=== PATIENT | male | born 1945 | race Caucasian/White ===

== ENCOUNTER 2019-02-19 16:52 | Emergency (ER) | payer MEDICARE ==
[~2019-02-19] VITALS: Ht 170.2 cm; Wt 59.0 kg
[2019-02-19] MEDS ORDERED: IPRATROPIUM BROMIDE (0.02%) 0.5MG/2.5ML NEB HHN STA (17:28)
[2019-02-19] MEDS ORDERED: ALBUTEROL (0.083%) 2.5MG/3ML NEB HHN STA (17:28)
[2019-02-19] MEDS ORDERED: METHYLPREDNISOLONE SOD SUCC 125 MG/2 ML VIAL IV STA (17:28)
[2019-02-19 18:07] LABS: BASOPHILS % 0.6 % (0.0-2.0); EOSINOPHILS % 2.5 % (0.0-5.0); HEMATOCRIT. 36.3 % (42.0-52.0); HEMOGLOBIN. 11.3 g/dL (14.0-18.0); LYMPHOCYTES % 34.5 % (20.0-50.0); MEAN CORPUSCULAR HEMOGLOBIN 23.5 pg (28.0-32.0); MEAN CORPUSCULAR VOLUME 75.7 fL (80.0-94.0); MEAN PLATELET VOLUME 8.4 fl (7.4-10.4); MONOCYTES % 8.8 % (2.0-8.0); NEUTROPHILS % 53.6 % (40.0-76.0); PLATELET 362 x1000/uL (130-400); RED CELL DISTRIBUTION WIDTH 17.9 % (11.6-14.6)
[2019-02-19 18:12] LABS: CHLORIDE 103 mEq/L (98-107)
[2019-02-19 19:26] LABS: PLATELET ESTIMATE NORMAL
[2019-02-19] MEDS ORDERED: KETOROLAC 15MG/ML VIAL IV ONE (20:45)
[2019-02-19 23:31] VITALS: BP 112/55
== END 2019-02-19 23:41 | disposition left against medical advice (07) ==
LOC: ER 16:52
DX: J44.1 Chronic obstructive pulmonary disease with (acute) exacerbation (principal); R91.8 Other nonspecific abnormal finding of lung field; I11.0 Hypertensive heart disease with heart failure; I50.9 Heart failure, unspecified; Z85.118 Personal history of other malignant neoplasm of bronchus and lung; I25.10 Atherosclerotic heart disease of native coronary artery without angina pectoris; Z95.1 Presence of aortocoronary bypass graft
CPT/HCPCS: 96374; 96375; 99285; J1885; J2930; J7611; 36415; 71045; 83880; 84484; 93005; 94644

== ENCOUNTER 2019-02-21 10:51 | Inpatient (IN) | payer MEDICARE ==
[~2019-02-21] VITALS: Ht 170.2 cm; Wt 59.0 kg
[2019-02-21] MEDS ORDERED: IPRATROPIUM BROMIDE (0.02%) 0.5MG/2.5ML NEB HHN STA (11:07)
[2019-02-21] MEDS ORDERED: METHYLPREDNISOLONE SOD SUCC 125 MG/2 ML VIAL IV STA (11:07)
[2019-02-21] MEDS ORDERED: ALBUTEROL (0.083%) 2.5MG/3ML NEB HHN STA (11:07)
[2019-02-21] MEDS ORDERED: ASPIRIN 81MG TABLET PO ONE (11:15)
[2019-02-21 13:25] LABS: BASOPHILS % 0.7 % (0.0-2.0); EOSINOPHILS % 1.4 % (0.0-5.0); HEMATOCRIT. 33.6 % (42.0-52.0); HEMOGLOBIN. 10.4 g/dL (14.0-18.0); MEAN CORPUSCULAR HEMOGLOBIN 23.4 pg (28.0-32.0); MEAN CORPUSCULAR VOLUME 75.5 fL (80.0-94.0); MEAN PLATELET VOLUME 8.4 fl (7.4-10.4); MONOCYTES % 6.3 % (2.0-8.0); NEUTROPHILS % 57.6 % (40.0-76.0); PLATELET 325 x1000/uL (130-400); RED BLOOD CELL COUNT 4.45 mill/uL (4.7-6.1); RED CELL DISTRIBUTION WIDTH 18.5 % (11.6-14.6)
[2019-02-21 13:32] LABS: CHLORIDE 109 mEq/L (98-107)
[2019-02-21] MEDS ORDERED: DOCUSATE SODIUM 100MG CAPSULE PO PRN (15:15)
[2019-02-21] MEDS ORDERED: DEXTROSE 50% WATER 50ML SYRINGE IV PRN (15:15)
[2019-02-21] MEDS ORDERED: TRAMADOL 50MG TABLET PO PRN (15:15)
[2019-02-21] MEDS ORDERED: ONDANSETRON HCL 4MG/2ML INJ IV PRN (15:15)
[2019-02-21] MEDS ORDERED: CLONIDINE 0.1MG TABLET PO PRN (15:15)
[2019-02-21] MEDS ORDERED: ACETAMINOPHEN 325MG TABLET PO PRN (15:15)
[2019-02-21] MEDS ORDERED: LEVOFLOXACIN 500MG PREMIX 100 ML IV SCH (15:15)
[2019-02-21] MEDS ORDERED: LORAZEPAM 0.5MG TABLET PO PRN (15:15)
[2019-02-21] MEDS ORDERED: ZOLPIDEM TARTRATE 5MG TABLET PO PRN (15:15)
[2019-02-21] MEDS ORDERED: MAGNESIUM/ALUMINUM HYDROXIDE/SIMETHICONE 30ML UDC PO PRN (15:15)
[2019-02-21] MEDS ORDERED: GUAIFENESIN 200MG/10ML SUGAR FREE UDC PO PRN (15:15)
[2019-02-21 15:46] LABS: ETHANOL BLOOD < 10 mg/dL
[2019-02-21 15:48] LABS: TOTAL IRON BINDING CAPACITY 368 ug/dL (250-450)
[2019-02-21 15:49] LABS: LDL CHOLESTEROL 113 mg/dL (5-100)
[2019-02-21 15:51] LABS: HDL CHOLESTEROL 36 mg/dL (40-59)
[2019-02-21 16:14] LABS: VITAMIN B12 SERUM 831 pg/mL (211-911)
[2019-02-21 16:16] LABS: FOLIC ACID (FOLATE) SERUM > 20.00 ng/mL (>5.38)
[2019-02-21] MEDS ORDERED: ENOXAPARIN 40MG/0.4ML SYR SUBCUT SCH (21:30)
[2019-02-21] MEDS: BLOOD SUGAR DIAGNOSTIC STRIP TEST SCH (21:30)
[2019-02-21] MEDS: METHYLPREDNISOLONE SOD SUCC 125 MG/2 ML VIAL IV SCH (22:57)
[2019-02-21] MEDS: KETOROLAC 15MG/ML VIAL IV PRN (22:57)
[2019-02-21] MEDS: GUAIFENESIN/DM 600MG/30MG ER TAB 12HR PO SCH (22:59)
[2019-02-21] MEDS: ASCORBIC ACID 500 MG TABLET PO SCH (22:59)
[2019-02-21] MEDS: FAMOTIDINE 20MG TABLET PO SCH (23:00)
[2019-02-21] MEDS: INSULIN LISPRO 100 UNITS/ML SUBCUT SCH (23:13)
[2019-02-21 23:30] VITALS: BP 104/54
[2019-02-22 00:19] LABS: CREATINE KINASE 24 IU/L (39-308)
[2019-02-22 00:20] VITALS: BP 129/56
[2019-02-22 00:20] LABS: CREATINE KINASE MB FRACTION 1.3 ng/mL (0.5-3.6)
[2019-02-22] MEDS: LEVETIRACETAM 500MG in SODIUM CHLORIDE 0.9% 100ML IV SCH ×2 (00:33→08:43)
[2019-02-22] MEDS: IPRATROPIUM/ALBUTEROL 0.5-3(2.5)MG/3ML NEB HHN SCH ×3 (01:40→16:30)
[2019-02-22 04:00] VITALS: BP 125/62
[2019-02-22] MEDS: METHYLPREDNISOLONE SOD SUCC 125 MG/2 ML VIAL IV SCH ×2 (05:55→13:33)
[2019-02-22] MEDS: KETOROLAC 15MG/ML VIAL IV PRN (05:57)
[2019-02-22] MEDS: BLOOD SUGAR DIAGNOSTIC STRIP TEST SCH ×3 (06:24→16:51)
[2019-02-22 07:25] LABS: CREATINE KINASE 25 IU/L (39-308)
[2019-02-22 07:26] LABS: CREATINE KINASE MB FRACTION 1.3 ng/mL (0.5-3.6)
[2019-02-22 08:00] VITALS: BP 121/56
[2019-02-22 08:02] LABS: *AMPHETAMINES SCREEN URINE NEGATIVE (NEGATIVE); *BARBITURATES SCREEN URINE NEGATIVE (NEGATIVE); *BENZODIAZEPINES SCREEN URINE NEGATIVE (NEGATIVE); *COCAINE SCREEN URINE NEGATIVE (NEGATIVE); METHADONE URINE SCREEN NEGATIVE (NEGATIVE); OPIATES URINE SCREEN NEGATIVE (NEGATIVE)
[2019-02-22 08:03] LABS: CANNABINOID URINE SCREEN PRESUMTIVE POSITIVE (NEGATIVE); PHENCYCLIDINE URINE SCREEN NEGATIVE (NEGATIVE)
[2019-02-22] MEDS: FAMOTIDINE 20MG TABLET PO SCH (08:44)
[2019-02-22] MEDS: ASCORBIC ACID 500 MG TABLET PO SCH (08:44)
[2019-02-22] MEDS: GUAIFENESIN/DM 600MG/30MG ER TAB 12HR PO SCH (08:44)
[2019-02-22] MEDS: INSULIN LISPRO 100 UNITS/ML SUBCUT SCH ×3 (08:53→16:51)
[2019-02-22] MEDS ORDERED: ASPIRIN 325MG EC TABLET PO SCH (09:00)
[2019-02-22] MEDS ORDERED: ZINC SULFATE 220 MG ( 50 ) CAPSULE PO SCH (09:00)
[2019-02-22] MEDS: IPRATROPIUM/ALBUTEROL 0.5-3(2.5)MG/3ML NEB HHN PRN ×2 (09:05→12:25)
[2019-02-22 12:00] VITALS: BP 93/47
[2019-02-22] MEDS ORDERED: PNEUMOCOCCAL 23-VAL P-SAC VAC 0.5 ML IM ONE (12:00)
[2019-02-22] MEDS ORDERED: ALPRAZOLAM 0.5 MG TABLET PO PRN (13:15)
[2019-02-22] MEDS ORDERED: RISPERIDONE 0.25MG TABLET PO SCH (13:15)
[2019-02-22] MEDS ORDERED: NICOTINE 21MG PATCH TD SCH (13:45)
[2019-02-22 16:00] VITALS: BP 118/62
[2019-02-22] MEDS: ALBUMIN HUMAN 25GM/500ML (5%) IV NR ×2 (16:15→17:27)
[2019-02-22 20:46] VITALS: BP 107/68
[2019-02-22] MEDS ORDERED: ATORVASTATIN CALCIUM 10MG TABLET PO SCH (21:00)
== END 2019-02-22 20:55 | disposition left against medical advice (07) | DRG 189 ==
LOC: ER 11:08 → 6WST 14:56 → SUPCPDRO 15:07 → ENRESERV 19:37
PROVIDERS: ADMIT Internal Medicine; ATTEND Internal Medicine
DX: J96.20 Acute and chronic respiratory failure, unspecified whether with hypoxia or hypercapnia (principal); J44.1 Chronic obstructive pulmonary disease with (acute) exacerbation; R65.10 Systemic inflammatory response syndrome (SIRS) of non-infectious origin without acute organ dysfunction; E44.0 Moderate protein-calorie malnutrition; D63.8 Anemia in other chronic diseases classified elsewhere; D72.829 Elevated white blood cell count, unspecified; E11.65 Type 2 diabetes mellitus with hyperglycemia; E83.51 Hypocalcemia; F12.10 Cannabis abuse, uncomplicated; F17.210 Nicotine dependence, cigarettes, uncomplicated; Z53.21 Procedure and treatment not carried out due to patient leaving prior to being seen by health care provider; I11.0 Hypertensive heart disease with heart failure; I25.10 Atherosclerotic heart disease of native coronary artery without angina pectoris; I50.9 Heart failure, unspecified; Z66 Do not resuscitate; Z80.9 Family history of malignant neoplasm, unspecified; Z82.49 Family history of ischemic heart disease and other diseases of the circulatory system; Z83.3 Family history of diabetes mellitus; Z85.118 Personal history of other malignant neoplasm of bronchus and lung; Z85.51 Personal history of malignant neoplasm of bladder; Z86.718 Personal history of other venous thrombosis and embolism; Z90.89 Acquired absence of other organs; Z92.3 Personal history of irradiation; Z95.1 Presence of aortocoronary bypass graft; Z98.1 Arthrodesis status; Z99.3 Dependence on wheelchair; Z99.81 Dependence on supplemental oxygen; Z68.20 Body mass index [BMI] 20.0-20.9, adult
CPT/HCPCS: 36415; 71045; 80061; 80305; 80320; 82550; 82553; 82607; 82746; 82962; 83540; 83550; 83735; 83880; 84132; 84484; 93005; 93970; 94640; 94644; 99285; J1650; J1815; J1885; J1953; J2930; J7050; J7611; J7620; P9041; G0480

== ENCOUNTER 2019-02-27 20:45 | Inpatient (IN) | payer MEDICARE ==
[~2019-02-27] VITALS: Ht 167.6 cm; Wt 65.0 kg
[2019-02-27] MEDS ORDERED: METHYLPREDNISOLONE SOD SUCC 125 MG/2 ML VIAL IV STA (21:55)
[2019-02-27] MEDS ORDERED: IPRATROPIUM BROMIDE (0.02%) 0.5MG/2.5ML NEB HHN STA (21:55)
[2019-02-27] MEDS ORDERED: ALBUTEROL (0.083%) 2.5MG/3ML NEB HHN STA (21:55)
[2019-02-27] MEDS ORDERED: MAGNESIUM 2 G PREMIX 50 ML IV ONE (22:00)
[2019-02-27 23:11] LABS: BASOPHILS % 0.5 % (0.0-2.0); EOSINOPHILS % 2.3 % (0.0-5.0); HEMATOCRIT. 34.7 % (42.0-52.0); HEMOGLOBIN. 10.8 g/dL (14.0-18.0); LYMPHOCYTES % 19.2 % (20.0-50.0); MEAN CORPUSCULAR HEMOGLOBIN 23.5 pg (28.0-32.0); MEAN CORPUSCULAR VOLUME 75.6 fL (80.0-94.0); MEAN PLATELET VOLUME 8.5 fl (7.4-10.4); MONOCYTES % 8.8 % (2.0-8.0); NEUTROPHILS % 69.2 % (40.0-76.0); PLATELET 303 x1000/uL (130-400); RED BLOOD CELL COUNT 4.59 mill/uL (4.7-6.1); RED CELL DISTRIBUTION WIDTH 18.3 % (11.6-14.6)
[2019-02-27 23:13] LABS: CHLORIDE 102 mEq/L (98-107)
[2019-02-28] MEDS ORDERED: AZITHROMYCIN 500 MG in DEXT 5% WATER 250 ML IV SCH (00:15)
[2019-02-28] MEDS ORDERED: METHYLPREDNISOLONE SOD SUCC 125 MG/2 ML VIAL IV SCH (06:30)
[2019-02-28] MEDS ORDERED: DEXTROSE 50% WATER 50ML SYRINGE IV PRN (06:30)
[2019-02-28] MEDS ORDERED: IPRATROPIUM/ALBUTEROL 0.5-3(2.5)MG/3ML NEB HHN PRN (06:30)
[2019-02-28] MEDS: BLOOD SUGAR DIAGNOSTIC STRIP TEST SCH ×4 (06:57→21:45)
[2019-02-28 08:00] VITALS: BP 97/53
[2019-02-28] MEDS: METHYLPREDNISOLONE SOD SUCC 40 MG/ML VIAL IV SCH ×3 (09:02→21:58)
[2019-02-28] MEDS: ENOXAPARIN 40MG/0.4ML SYR SUBCUT SCH (09:10)
[2019-02-28] MEDS: INSULIN LISPRO 100 UNITS/ML SUBCUT SCH ×4 (09:11→21:00)
[2019-02-28] MEDS: IPRATROPIUM/ALBUTEROL 0.5-3(2.5)MG/3ML NEB HHN SCH ×4 (09:40→21:29)
[2019-02-28] MEDS ORDERED: INSULIN GLARGINE UD 100 UNITS/ML SYR SUBCUT SCH (10:00)
[2019-02-28] MEDS ORDERED: LEVOFLOXACIN 500MG PREMIX 100 ML IV SCH (11:00)
[2019-02-28 12:00] VITALS: BP 115/50
[2019-02-28] MEDS: NICOTINE 14MG PATCH TD SCH (12:32)
[2019-02-28] MEDS: INSULIN GLARGINE UD 100 UNITS/ML SYR SUBCUT SCH ×2 (12:34→22:02)
[2019-02-28] MEDS ORDERED: MORPHINE SULFATE 2 MG/ML CPJ (NOT FOR IM USE) IV NR (13:00)
[2019-02-28] MEDS ORDERED: ALPRAZOLAM 0.5 MG TABLET PO NR (13:00)
[2019-02-28 16:00] VITALS: BP 106/59
[2019-02-28 20:00] VITALS: BP 92/44
[2019-02-28] MEDS: BUDESONIDE 0.5MG/2ML NEB HHN SCH (21:29)
[2019-03-01] VITALS: BP 97/48
[2019-03-01] MEDS: IPRATROPIUM/ALBUTEROL 0.5-3(2.5)MG/3ML NEB HHN SCH ×3 (01:14→08:01)
[2019-03-01 04:00] VITALS: BP 98/47
[2019-03-01] MEDS: METHYLPREDNISOLONE SOD SUCC 40 MG/ML VIAL IV SCH (05:23)
[2019-03-01] MEDS: BLOOD SUGAR DIAGNOSTIC STRIP TEST SCH (07:20)
[2019-03-01] MEDS: INSULIN LISPRO 100 UNITS/ML SUBCUT SCH (07:50)
[2019-03-01] MEDS: BUDESONIDE 0.5MG/2ML NEB HHN SCH (08:01)
[2019-03-01] MEDS: NICOTINE 14MG PATCH TD SCH (09:00)
[2019-03-01] MEDS: ENOXAPARIN 40MG/0.4ML SYR SUBCUT SCH (09:00)
[2019-03-01] MEDS ORDERED: LOSARTAN POTASSIUM 25 MG TABLET PO SCH (09:00)
[2019-03-01] MEDS: INSULIN GLARGINE UD 100 UNITS/ML SYR SUBCUT SCH (10:00)
== END 2019-03-01 10:00 | disposition left against medical advice (07) | DRG 871 ==
LOC: ER 20:45 → 6WST 02-28 01:41 → EDBEDREQDT 02-28 01:49 → EDBEDREQTM 02-28 01:49 → EDBEDREQ 02-28 01:49 → ENRESERV 02-28 04:00
PROVIDERS: ADMIT Internal Medicine; ATTEND Internal Medicine
DX: A41.9 Sepsis, unspecified organism (principal); J18.9 Pneumonia, unspecified organism; J96.20 Acute and chronic respiratory failure, unspecified whether with hypoxia or hypercapnia; I50.42 Chronic combined systolic (congestive) and diastolic (congestive) heart failure; I42.9 Cardiomyopathy, unspecified; J44.0 Chronic obstructive pulmonary disease with (acute) lower respiratory infection; J44.1 Chronic obstructive pulmonary disease with (acute) exacerbation; E11.9 Type 2 diabetes mellitus without complications; F17.210 Nicotine dependence, cigarettes, uncomplicated; F41.9 Anxiety disorder, unspecified; Z53.21 Procedure and treatment not carried out due to patient leaving prior to being seen by health care provider; I11.0 Hypertensive heart disease with heart failure; I25.10 Atherosclerotic heart disease of native coronary artery without angina pectoris; Z85.118 Personal history of other malignant neoplasm of bronchus and lung; Z92.3 Personal history of irradiation; Z95.1 Presence of aortocoronary bypass graft; Z90.89 Acquired absence of other organs; Z71.6 Tobacco abuse counseling
CPT/HCPCS: 36415; 71045; 82962; 83880; 84484; 93005; 94640; 94644; 99285; J0456; J1650; J1815; J1956; J2270; J2920; J2930; J3475; J7060; J7611; J7620; J7626

== ENCOUNTER 2019-03-06 19:19 | Inpatient (IN) | payer MEDICARE ==
[~2019-03-06] VITALS: Ht 170.2 cm; Wt 80.3 kg
[2019-03-06] MEDS ORDERED: ALBUTEROL (0.083%) 2.5MG/3ML NEB HHN STA (19:29)
[2019-03-06] MEDS ORDERED: IPRATROPIUM BROMIDE (0.02%) 0.5MG/2.5ML NEB HHN STA (19:29)
[2019-03-06 20:02] LABS: BASOPHILS % 0.7 % (0.0-2.0); EOSINOPHILS % 1.1 % (0.0-5.0); HEMATOCRIT. 37.6 % (42.0-52.0); HEMOGLOBIN. 11.6 g/dL (14.0-18.0); LYMPHOCYTES % 15.4 % (20.0-50.0); MEAN CORPUSCULAR HEMOGLOBIN 23.2 pg (28.0-32.0); MEAN CORPUSCULAR VOLUME 75.1 fL (80.0-94.0); MEAN PLATELET VOLUME 8.4 fl (7.4-10.4); MONOCYTES % 6.1 % (2.0-8.0); NEUTROPHILS % 76.7 % (40.0-76.0); PLATELET 379 x1000/uL (130-400); RED BLOOD CELL COUNT 5.01 mill/uL (4.7-6.1); RED CELL DISTRIBUTION WIDTH 18.3 % (11.6-14.6)
[2019-03-06 20:04] LABS: CHLORIDE 95 mEq/L (98-107)
[2019-03-06] MEDS ORDERED: MORPHINE SULFATE 4 MG/ML CPJ (NOT FOR IM USE) IV ONE (22:15)
[2019-03-06] MEDS ORDERED: ONDANSETRON HCL 4MG/2ML INJ IV PRN (23:15)
[2019-03-06] MEDS ORDERED: ACETAMINOPHEN 325MG TABLET PO PRN (23:15)
[2019-03-06 23:53] LABS: CLARITY URINE CLEAR (CLEAR); COLOR URINE YELLOW (YELLOW); KETONES URINE NEGATIVE (NEGATIVE); LEUKOCYTE ESTERASE URINE NEGATIVE (NEGATIVE); NITRITE URINE NEGATIVE (NEGATIVE); OCCULT BLOOD URINE NEGATIVE (NEGATIVE); PH URINE 6.5 (4.5-8.0); PROTEIN URINE NEGATIVE (NEGATIVE); SPECIFIC GRAVITY URINE 1.021 (1.005-1.030); UROBILINOGEN URINE 0.2 E.U./dL (0.2-1.0)
[2019-03-07] VITALS (22 sets, daily range): BP systolic 92–130; BP diastolic 45–81
[2019-03-07] MEDS: IPRATROPIUM BROMIDE (0.02%) 0.5MG/2.5ML NEB HHN SCH ×4 (00:45→12:50)
[2019-03-07] MEDS ORDERED: DEXTROSE 50% WATER 50ML SYRINGE IV PRN (03:45)
[2019-03-07] MEDS: MORPHINE SULFATE 2 MG/ML CPJ (NOT FOR IM USE) IV PRN ×4 (04:22→22:51)
[2019-03-07] MEDS: BLOOD SUGAR DIAGNOSTIC STRIP TEST SCH ×4 (06:13→21:13)
[2019-03-07] MEDS: BUDESONIDE 0.5MG/2ML NEB HHN SCH ×2 (08:00→21:05)
[2019-03-07] MEDS: METFORMIN HCL 500MG TABLET PO SCH ×2 (08:40→17:20)
[2019-03-07] MEDS: INSULIN LISPRO 100 UNITS/ML SUBCUT SCH ×4 (08:40→21:50)
[2019-03-07] MEDS ORDERED: OXYCODONE HCL/ACETAMINOPHEN 5/325MG TABLET PO PRN (10:15)
[2019-03-07] MEDS: LOSARTAN POTASSIUM 25 MG TABLET PO SCH (10:31)
[2019-03-07] MEDS: ENOXAPARIN 40MG/0.4ML SYR SUBCUT SCH (12:46)
[2019-03-07] MEDS: METHYLPREDNISOLONE SOD SUCC 40 MG/ML VIAL IV SCH ×2 (14:50→21:50)
[2019-03-07] MEDS: NICOTINE 14MG PATCH TD SCH (14:51)
[2019-03-07] MEDS: IPRATROPIUM/ALBUTEROL 0.5-3(2.5)MG/3ML NEB HHN SCH ×2 (15:23→21:04)
[2019-03-07] MEDS: ALPRAZOLAM 0.5 MG TABLET PO PRN (17:20)
[2019-03-08] VITALS (12 sets, daily range): BP systolic 97–118; BP diastolic 49–66
[2019-03-08] MEDS: IPRATROPIUM/ALBUTEROL 0.5-3(2.5)MG/3ML NEB HHN SCH ×7 (01:25→23:54)
[2019-03-08] MEDS: ALPRAZOLAM 0.5 MG TABLET PO PRN ×2 (02:14→18:46)
[2019-03-08] MEDS: METHYLPREDNISOLONE SOD SUCC 40 MG/ML VIAL IV SCH (06:30)
[2019-03-08] MEDS: BLOOD SUGAR DIAGNOSTIC STRIP TEST SCH ×4 (06:32→21:45)
[2019-03-08] MEDS: MORPHINE SULFATE 2 MG/ML CPJ (NOT FOR IM USE) IV PRN (06:47)
[2019-03-08] MEDS: METFORMIN HCL 500MG TABLET PO SCH ×3 (07:20→19:43)
[2019-03-08] MEDS: INSULIN LISPRO 100 UNITS/ML SUBCUT SCH ×4 (07:46→21:49)
[2019-03-08] MEDS: BUDESONIDE 0.5MG/2ML NEB HHN SCH ×2 (08:47→20:04)
[2019-03-08] MEDS: LOSARTAN POTASSIUM 25 MG TABLET PO SCH (10:05)
[2019-03-08] MEDS: NICOTINE 14MG PATCH TD SCH (10:17)
[2019-03-08] MEDS: RISPERIDONE 1MG TABLET PO SCH (10:17)
[2019-03-08] MEDS: ENOXAPARIN 40MG/0.4ML SYR SUBCUT SCH (10:18)
[2019-03-08 11:59] LABS: BG BASE EXCESS 7.5 mmol/L (-2.0-2.0); BG CARBOXYHEMOGLOBIN 0.9 % (0.5-1.5); BG DEOXYHEMOGLOBIN 10.9 % (0.0-5.0); BG FRACTION INSPIRED OXYGEN 21; BG HCO3 ACT 33.1 mmol/L (22.0-26.0); BG METHEMOGLOBIN 0.3 % (0.0-1.5); BG OXYHEMOGLOBIN 87.9 % (94.0-97.0); BG PCO2 51.7 mmHg (35.0-45.0); BG PH 7.424 (7.350-7.450); BG PO2 55.6 mmHg (75.0-100.0); BG SAMPLE SITE RIGHT RADIAL; BG TOTAL HEMOGLOBIN 11.3 g/dL (12.0-18.0); BG VENT MODE ROOM AIR
[2019-03-08] MEDS ORDERED: ONDANSETRON HCL 4MG TABLET PO PRN (20:15)
[2019-03-09] VITALS (10 sets, daily range): BP systolic 100–124; BP diastolic 49–66
[2019-03-09] MEDS: IPRATROPIUM/ALBUTEROL 0.5-3(2.5)MG/3ML NEB HHN SCH ×5 (04:22→21:06)
[2019-03-09] MEDS: BLOOD SUGAR DIAGNOSTIC STRIP TEST SCH ×4 (06:32→21:00)
[2019-03-09] MEDS: METFORMIN HCL 500MG TABLET PO SCH ×2 (07:20→17:16)
[2019-03-09] MEDS: INSULIN LISPRO 100 UNITS/ML SUBCUT SCH ×4 (07:20→21:27)
[2019-03-09] MEDS: NICOTINE 14MG PATCH TD SCH (09:00)
[2019-03-09] MEDS: RISPERIDONE 1MG TABLET PO SCH (09:00)
[2019-03-09] MEDS: LOSARTAN POTASSIUM 25 MG TABLET PO SCH (09:00)
[2019-03-09] MEDS: PREDNISONE 20MG TABLET PO SCH (09:00)
[2019-03-09] MEDS: BUDESONIDE 0.5MG/2ML NEB HHN SCH ×2 (09:16→21:06)
[2019-03-09] MEDS: ENOXAPARIN 40MG/0.4ML SYR SUBCUT SCH (11:00)
[2019-03-09] MEDS: ALPRAZOLAM 0.5 MG TABLET PO PRN (14:56)
[2019-03-09] MEDS ORDERED: HALOPERIDOL LACTATE 5MG/ML VIAL IM PRN (18:00)
[2019-03-10] MEDS: IPRATROPIUM/ALBUTEROL 0.5-3(2.5)MG/3ML NEB HHN SCH ×5 (01:03→15:34)
[2019-03-10] MEDS: METFORMIN HCL 500MG TABLET PO SCH ×2 (07:50→10:29)
[2019-03-10] MEDS: INSULIN LISPRO 100 UNITS/ML SUBCUT SCH ×2 (07:50→12:43)
[2019-03-10 08:00] VITALS: BP 104/52
[2019-03-10] MEDS: BLOOD SUGAR DIAGNOSTIC STRIP TEST SCH ×2 (08:01→12:43)
[2019-03-10] MEDS: LOSARTAN POTASSIUM 25 MG TABLET PO SCH (09:00)
[2019-03-10] MEDS: NICOTINE 14MG PATCH TD SCH (09:00)
[2019-03-10] MEDS: PREDNISONE 20MG TABLET PO SCH (10:29)
[2019-03-10] MEDS: ENOXAPARIN 40MG/0.4ML SYR SUBCUT SCH (10:29)
[2019-03-10] MEDS: RISPERIDONE 1MG TABLET PO SCH (10:29)
[2019-03-10 12:00] VITALS: BP 109/51
[2019-03-10 16:00] VITALS: BP 123/56
[2019-03-10 16:37] VITALS: BP 123/56
== END 2019-03-10 17:01 | disposition home or self-care (01) | DRG 133 ==
LOC: ER 19:19 → 3WST 22:46 → EDBEDREQ 23:06 → EDBEDREQTM 23:06 → ENRESERV 23:29 → 6EST 03-09 16:36
PROVIDERS: ADMIT Internal Medicine; ATTEND Internal Medicine
PROC: 5A09357 Assistance with Respiratory Ventilation, Less than 24 Consecutive Hours, Continuous Positive Airway Pressure (ICD-10-PCS; principal; 2019-03-06)
DX: J96.20 Acute and chronic respiratory failure, unspecified whether with hypoxia or hypercapnia (principal); E44.0 Moderate protein-calorie malnutrition; E87.8 Other disorders of electrolyte and fluid balance, not elsewhere classified; I11.0 Hypertensive heart disease with heart failure; R65.10 Systemic inflammatory response syndrome (SIRS) of non-infectious origin without acute organ dysfunction; E87.1 Hypo-osmolality and hyponatremia; I50.22 Chronic systolic (congestive) heart failure; I42.9 Cardiomyopathy, unspecified; D64.9 Anemia, unspecified; E11.9 Type 2 diabetes mellitus without complications; J44.1 Chronic obstructive pulmonary disease with (acute) exacerbation; E78.5 Hyperlipidemia, unspecified; F17.210 Nicotine dependence, cigarettes, uncomplicated; F41.9 Anxiety disorder, unspecified; G89.29 Other chronic pain; I25.10 Atherosclerotic heart disease of native coronary artery without angina pectoris; M19.90 Unspecified osteoarthritis, unspecified site; Z90.49 Acquired absence of other specified parts of digestive tract; Z92.3 Personal history of irradiation; Z95.1 Presence of aortocoronary bypass graft; Z98.1 Arthrodesis status; Z99.3 Dependence on wheelchair; Z68.27 Body mass index [BMI] 27.0-27.9, adult; Z85.118 Personal history of other malignant neoplasm of bronchus and lung; Z99.81 Dependence on supplemental oxygen; Z71.6 Tobacco abuse counseling
CPT/HCPCS: 36415; 36600; 71045; 81003; 82375; 82805; 82962; 83880; 84145; 84484; 93005; 93970; 94640; 94644; 94660; 99285; J1630; J1650; J1815; J2270; J2920; J7512; J7611; J7620; J7626

== ENCOUNTER 2019-10-25 17:04 | Inpatient (IN) | payer MEDICARE, MEDICAID ==
[~2019-10-25] VITALS: Ht 170.2 cm; Wt 64.9 kg
[2019-10-25] MEDS ORDERED: PIPERACILLIN/TAZ 3.375G PREMIX 50 ML IV ONE (18:30)
[2019-10-25 18:41] LABS: BASOPHILS % 2.7 % (0.0-2.0); EOSINOPHILS % 4.3 % (0.0-5.0); HEMATOCRIT. 32.1 % (42.0-52.0); HEMOGLOBIN. 10.5 g/dL (14.0-18.0); LYMPHOCYTES % 28.4 % (20.0-50.0); MEAN CORPUSCULAR HEMOGLOBIN 25.2 pg (28.0-32.0); MEAN PLATELET VOLUME 8.6 fl (7.4-10.4); MONOCYTES % 8.2 % (2.0-8.0); NEUTROPHILS % 56.4 % (40.0-76.0); PLATELET 276 x1000/uL (130-400); RED BLOOD CELL COUNT 4.17 mill/uL (4.7-6.1)
[2019-10-25 18:53] LABS: CHLORIDE 99 mEq/L (98-107)
[2019-10-25] MEDS ORDERED: DOCUSATE SODIUM 100MG CAPSULE PO PRN (20:15)
[2019-10-25] MEDS ORDERED: IPRATROPIUM/ALBUTEROL 0.5-3(2.5)MG/3ML NEB ORI PRN (20:15)
[2019-10-25] MEDS ORDERED: KETOROLAC 15MG/ML VIAL IV PRN (20:15)
[2019-10-25] MEDS ORDERED: ONDANSETRON HCL 4MG/2ML INJ IV PRN (20:15)
[2019-10-25] MEDS ORDERED: CLONIDINE 0.1MG TABLET PO PRN (20:15)
[2019-10-25] MEDS ORDERED: ZOLPIDEM TARTRATE 5MG TABLET PO PRN (20:15)
[2019-10-25] MEDS ORDERED: MAGNESIUM/ALUMINUM HYDROXIDE/SIMETHICONE 30ML UDC PO PRN (20:15)
[2019-10-25] MEDS ORDERED: ACETAMINOPHEN 325MG TABLET PO PRN ×2 (20:15)
[2019-10-25] MEDS ORDERED: TRAMADOL 50MG TABLET PO PRN (20:15)
[2019-10-25] MEDS ORDERED: NITROGLYCERIN 0.4MG TABLET SL SL PRN (20:15)
[2019-10-25] MEDS ORDERED: GUAIFENESIN 200MG/10ML SUGAR FREE UDC PO PRN (20:15)
[2019-10-25 20:51] LABS: T4 FREE 1.05 ng/dL (0.76-1.46)
[2019-10-25] MEDS ORDERED: ENOXAPARIN 40MG/0.4ML SYR SUBCUT SCH (21:00)
[2019-10-25 21:17] LABS: FOLIC ACID (FOLATE) SERUM 18.5 ng/mL (>5.38)
[2019-10-25] MEDS ORDERED: VANCOMYCIN 1 G PREMIX 200 ML IV SCH (22:00)
[2019-10-25] MEDS ORDERED: DEXTROSE 50% WATER 50ML SYRINGE IV PRN (22:00)
[2019-10-25 22:03] LABS: *AMPHETAMINES SCREEN URINE NEGATIVE (NEGATIVE); *BARBITURATES SCREEN URINE NEGATIVE (NEGATIVE); *BENZODIAZEPINES SCREEN URINE NEGATIVE (NEGATIVE); *COCAINE SCREEN URINE NEGATIVE (NEGATIVE); METHADONE URINE SCREEN NEGATIVE (NEGATIVE); OPIATES URINE SCREEN NEGATIVE (NEGATIVE)
[2019-10-25 22:04] LABS: CANNABINOID URINE SCREEN NEGATIVE (NEGATIVE); PHENCYCLIDINE URINE SCREEN NEGATIVE (NEGATIVE)
[2019-10-25 23:45] VITALS: BP 106/43
[2019-10-26] VITALS: BP 106/43
[2019-10-26] MEDS: FAMOTIDINE 20MG TABLET PO SCH ×2 (00:55→10:04)
[2019-10-26] MEDS: ASCORBIC ACID 500 MG TABLET PO SCH ×2 (00:55→10:04)
[2019-10-26] MEDS ORDERED: PIPERACILLIN/TAZOBACTAM 3.375 G in DEXT 5% WATER 100 ML IV SCH ×2 (03:00→12:00)
[2019-10-26 04:00] VITALS: BP 113/46
[2019-10-26] MEDS ORDERED: BLOOD SUGAR DIAGNOSTIC STRIP TEST SCH (06:30)
[2019-10-26] MEDS ORDERED: INSULIN LISPRO 100 UNITS/ML SUBCUT SCH (07:00)
[2019-10-26] MEDS ORDERED: ZINC SULFATE 220 MG ( 50 ) CAPSULE PO SCH (09:00)
[2019-10-26] MEDS ORDERED: VANCOMYCIN 750 MG PREMIX 150 ML IV SCH (10:00)
[2019-10-26] MEDS ORDERED: VANCOMYCIN 1 G PREMIX 200 ML IV SCH (13:00)
== END 2019-10-26 10:40 | disposition left against medical advice (07) | DRG 872 ==
LOC: ER 17:04 → MICUSO 20:00 → EDBEDREQ 20:04 → EDBEDREQTM 20:04 → 6EST 10-26 00:33
PROVIDERS: ADMIT Internal Medicine; ATTEND Internal Medicine
DX: A41.9 Sepsis, unspecified organism (principal); E11.52 Type 2 diabetes mellitus with diabetic peripheral angiopathy with gangrene; I96 Gangrene, not elsewhere classified; I42.9 Cardiomyopathy, unspecified; E87.1 Hypo-osmolality and hyponatremia; E44.0 Moderate protein-calorie malnutrition; M86.8X6 Other osteomyelitis, lower leg; Z53.29 Procedure and treatment not carried out because of patient's decision for other reasons; J44.9 Chronic obstructive pulmonary disease, unspecified; F17.210 Nicotine dependence, cigarettes, uncomplicated; I25.10 Atherosclerotic heart disease of native coronary artery without angina pectoris; D63.8 Anemia in other chronic diseases classified elsewhere; E11.69 Type 2 diabetes mellitus with other specified complication; I11.0 Hypertensive heart disease with heart failure; I50.9 Heart failure, unspecified; Z90.49 Acquired absence of other specified parts of digestive tract; Z71.6 Tobacco abuse counseling; Z85.118 Personal history of other malignant neoplasm of bronchus and lung; Z95.1 Presence of aortocoronary bypass graft; Z91.11 Patient's noncompliance with dietary regimen; Z91.14 Patient's other noncompliance with medication regimen; Z68.22 Body mass index [BMI] 22.0-22.9, adult; Z91.19 Patient's noncompliance with other medical treatment and regimen; Z79.4 Long term (current) use of insulin
CPT/HCPCS: 36415; 73630; 80053; 80061; 80305; 82607; 82746; 82962; 83036; 83540; 83550; 83605; 84439; 84443; 85025; 93005; 93923; 99285; J1650; J1885; J2543; J3370; J7060